=== PATIENT | male | born 1975 | race Caucasian/White ===

== ENCOUNTER 2018-10-14 12:11 | Emergency (ER) | payer OTHER ==
[~2018-10-14] VITALS: Ht 175.3 cm; Wt 98.4 kg
[~2018-10-14 12:11] MED LIST: FLUO20CA90
[2018-10-14 12:57] VITALS: BP 124/82
[2018-10-14] MEDS ORDERED: methylPREDNISolone SOD SUCC 125 MG/2 ML VL IM ONE (13:15)
[2018-10-14] MEDS ORDERED: KETOROLAC TROMETH 60MG/2ML VIAL IM ONE (13:15)
[2018-10-14] MEDS ORDERED: diphenhdrAMINE HCL 25 MG CAP PO ONE (13:15)
== END 2018-10-14 13:58 | disposition home or self-care (01) ==
LOC: ER 12:15
DX: H05.221 Edema of right orbit (principal); Z79.899 Other long term (current) drug therapy
CPT/HCPCS: 72100; 96372; 99283; J1885; J2930

== ENCOUNTER 2019-06-03 09:49 | Emergency (ER) | payer OTHER ==
[~2019-06-03] VITALS: Ht 175.3 cm; Wt 99.8 kg
[2019-06-03] MEDS ORDERED: ALBUTEROL SULF 2.5 MG/0.5ML(0.5%) NEB SOLN NEB ONE (13:15)
[2019-06-03] MEDS ORDERED: IPRATROPIUM BROM 0.5 MG/2.5ML INH SOL NEB ONE (13:15)
[2019-06-03 13:48] VITALS: BP 120/78
== END 2019-06-03 13:52 | disposition home or self-care (01) ==
LOC: ER 09:49
DX: J06.9 Acute upper respiratory infection, unspecified (principal)
CPT/HCPCS: 71046; 94640; 99283; J7611; J7644

== ENCOUNTER 2025-01-18 10:31 | Emergency (ER) | payer OTHER ==
[~2025-01-18] VITALS: Ht 175.3 cm; Wt 100.1 kg
[~2025-01-18 10:31] MED LIST changes: +FLUO-470; -FLUO20CA90
[2025-01-18 10:32] VITALS: TEMP 98
[2025-01-18 10:40] VITALS: BP 161/92; PULSE 78; RESP 18; O2SAT 95
--- NOTE | 2025-01-18 10:43 | ED.PDOC ---
Musculoskeletal HPI Comments A 49 YEAR OLD MALE PRESENTS TO THE ED WITH COMPLAINT OF RIGHT LOWER LEG PAIN. 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 PATIENT REPORTS HE IS NOW EXPERIENCING RIGHT LOWER LEG PAIN AND THINKS HE MAY HAVE PULLED A MUSCLE IN HIS RIGHT CALF, BUT WOULD LIKE TO HAVE IT EVALUATED REGARDLESS. PATIENT DENIES FEVER, CHILLS, SHORTNESS OF BREATH, CHEST PAIN, ABDOMINAL PAIN, NAUSEA, VOMITING, HEADACHE, OR OTHER COMPLAINTS. NO OTHER SYMPTOMS OR MODIFYING FACTORS AT THIS TIME. PATIENT IS ALERT, ORIENTED X 4, AND HAS STEADY GAIT. Chief Complaint: Lower Extremity Time Seen by MD: 10:36 Primary Care Provider: LEE Reviewed Notes: Nurses Notes, Medications, Allergies Allergies: Coded Allergies: NO KNOWN ALLERGIES (Unverified , 01/04/16) Home Meds Active Scripts Methocarbamol (Methocarbamol) 750 Mg Tab, 750 MG PO BID, #20 TAB Prov:SANJANA WILLS 01/18/25 Ibuprofen (Ibuprofen) 800 Mg Tab, 1 TAB PO TID, #30 TAB Prov:SANJANA WILLS 01/18/25 Reported Medications Fluoxetine HCl (Fluoxetine HCl) 20 Mg Cap 12/16/16 Information Source: Patient Mode of Arrival: Ambulatory Location: Right Extremity Location: Calf Timing: Hours Prehospital treatment: None Severity: Moderate Able to Move Extremity: Yes Bear Weight: Fully Pain: Moderate Mechanism: Twisting Circumstances: Accident Onset of Symptoms: After Exercise Symptoms: Pain DVT Risk Factors: NONE Last Tetanus: UTD, Unknown Associated signs and symptoms: Leg pain Past Medical History PAST MEDICAL HISTORY: Denies Surgical History: Denies all surgeries Family History Family History: Reviewed,noncontributory to illness Social History Smoker: Non-Smoker Alcohol: Occasionally Drugs: Denies Drug Use Lives In: Home Constitutional: denies: chills, diaphoresis, fatigue, fever, malaise, sweats, weakness, others EENTM: denies: blurred vision, double vision, ear bleeding, ear discharge, ear drainage, ear pain, ear ringing, eye pain, eye redness, hearing loss, mouth pain, mouth swelling, nasal discharge, nose bleeding, nose congestion, nose pain, photophobia, tearing, throat pain, throat swelling, voice changes, others Respiratory: denies: cough, hemoptysis, orthopnea, SOB at rest, shortness of breath, SOB with excertion, stridor, wheezing, others Cardiovascular: denies: chest pain, dizzy spells, diaphoresis, Dyspnea on exertion, edema, irregular heart beat, left arm pain, lightheadedness, palpitations, PND, syncope, others Gastrointestinal: denies: abdomen distended, abdominal pain, blood streaked bowels, constipated, diarrhea, dysphagia, difficulty swallowing, hematemesis, melena, nausea, poor appetite, poor fluid intake, rectal bleeding, rectal pain, vomiting, others Genitourinary: denies: burning, dysuria, flank pain, frequency, hematuria, in continence, penile discharge, penile sore, pain, testicle pain, testicle swelling, urgency, others Neurological: denies: dizziness, fainting, headache, left sided numbness, left sided weakness, numbness, paresthesia, pre-existing deficit, right sided numbness, right sided weakness, seizure, speech problems, tingling, tremors, weakness, others Musculoskeletal: reports: muscle pain, others (RIGHT LOWER LEG/CALF PAIN); denies: back pain, gout, joint pain, joint swelling, muscle stiffness, neck pain Integumetry: denies: bruises, change in color, change in hair/nails, dryness, laceration, lesions, lumps, rash, wounds, others Allergic/Immunocompromised: denies: Difficulty Healing, Frequent Infections, Hives, Itching, others Hematologic/Lymphatic: denies: anemia, blood clots, easy bleeding, easy bruising, swollen glands, others Endocrine: denies: excessive hunger, excessive sweating, excessive thirst, excessive urination, flushing, intolerance to cold, intolerance to heat, unexplained weight gain, unexplained weight loss, others Psychiatric: denies: anxiety, bipolar disorder, depression, hopeless, panic disorder, schizophrenia, sleepless, suicidal, others All Other Systems: Reviewed and Negative Physical Exam General Appearance: No Apparent Distress, Normal HEENT: Normal ENT Inspection, PERRL/EOMI, Pharynx Normal, TMs Normal Neck: Full Range of Motion, Non-Tender, Normal, Normal Inspection Respiratory: Chest Non-Tender, Lungs Clear, No Accessory Muscle Use, No Respiratory Distress, Normal Breath Sounds Cardiovascular: No Edema, No JVD, No Murmur, No Gallop, Normal Peripheral Pulses, Regular Rate/Rhythm Breast Exam: Deferred Gastrointestinal: No Organomegaly, Non Tender, No Pulsatile Mass, Normal Bowel Sounds, Soft Genitalia: Deferred Pelvic: Deferred Rectal: Deferred Extremities: Decreased range of motion (SLIGHTLY. ), No calf tenderness, Normal capillary refill, Normal inspection, No pedal edema, Tender (AND MUSCLE SPASM ON RIGHT LOWER LEG, NO REDNESS, SWELLING AND DVT SIGNS. 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 Was a procedure done?: No Differential Diagnosis EXT Differential Diagnosis: Deep Vein Thrombosis, Sprain, Strain Other Differential Diagnosis SUPERFICIAL THROMBOSIS X-Ray, Labs, Meds, VS Vital Signs Date Time Temp Pulse Resp B/P (MAP) Pulse Ox O2 Delivery O2 Flow Rate FiO2 01/18/25 10:40 78 18 161/92 (115) 95 01/18/25 10:40 78 18 95 Room Air 01/18/25 10:32 98.0 78 18 161/92 95 98.0 Current Medications Medications (Trade) Dose Ordered Sig/Hilario Route Start Time Stop Time Status Last Admin Ketorolac Tromethamine (Toradol Injection) 60 mg ONCE ONCE IM 01/18/25 11:45 01/18/25 11:46 DC 01/18/25 11:45 Clinical History: STEPPED DOWN THE LADDER AND RIGHT CALF STARTED PAIN Ultrasonic imaging with Duplex Doppler Color Flow and Spectral Analysis was performed on the common femoral, femoral vein, great saphenous vein, popliteal vein, posterior tibial and peroneal veins in the right extremity using imaging and pulse Doppler probes on a Duplex ultrasound machine. The venous response to augmentation and compression was also evaluated. The study was done at the specific request of the treating physician to evaluate blood flow and to evaluate for the presence of thrombosis in the above mentioned veins. WID: FINDINGS: On the right, all of above mentioned veins appear patent. Flow in the common femoral vein is phasic. All veins collapse with probe compression at all levels. There is normal augmentation with distal compression bilaterally. IMPRESSION: No evidence of deep vein thrombus ATED BY: CASIE CATHERINE MD DICTATED DATE/TIME: 01/18/25 1148 SIGNED BY: CASIE CATHERINE MD SIGNED DATE/TIME: 01/18/25 1148 CC: X-Ray, Labs, Meds, VS Comment EXTERNAL MEDICAL RECORDS REVIEWED: [NONE] INDEPENDENT HISTORIANS: [NONE] SOCIAL DETERMINANTS OF HEALTH: [NONE] LABS ORDERED: NONE REVIEWED AND INTERPRETED RESULTS: NONE IMAGING ORDERED: CV VENOUS DOPPLER LOW EXT RT: [INTERPRETED BY U.S. TECH. NO DVT VISUALIZED AT THIS TIME. PENDING RADIOLOGY REVIEW.] TREATMENTS ORDERED: TORADOL 60 MG IM, CRUTCHES GIVEN PROCEDURES PERFORMED: NONE CRITICAL CARE TIME: NONE I HAVE DISCUSSED THE PATIENT WITH THE ATTENDING PHYSICIAN DR. EVANS AND HE AGREES WITH THE PATIENT'S PLAN OF CARE AND DISPOSITION. BASED ON HISTORY OF PRESENT ILLNESS, AND PHYSICAL EXAM, PATIENT WILL BE DISCHARGED HOME. DISCUSSED PLAN FOR DISCHARGE HOME WITH RX [IBUPROFEN 800 MG AND ROBAXIN]. MEDICATION WARNINGS GIVEN. SHARED DECISION MAKING: DISCUSSED WITH PATIENT THAT THEIR WORKUP WAS NORMAL. PATIENT INSTRUCTED TO FOLLOW UP WITH PRIMARY CARE PROVIDER IN 1-2 DAYS FOR RE- EVALUATION OF SYMPTOMS. PATIENT VERBALIZES UNDERSTANDING TO RETURN TO ED FOR NEW OR WORSENING SYMPTOMS OR IF FOLLOW UP WITH PCP CANNOT BE OBTAINED. PATIENT FEELS COMFORTABLE GOING HOME AT THIS TIME. ALL QUESTIONS ADDRESSED AT TIME OF DISCHARGE. Images Reviewed?: Images reviewed and evaluated by me Time of 1ST Reevaluation: 12:00 Reevaluation 1ST: Improved Patient Education/Counseling: Diagnosis, Treatment, Need For Follow Up Family Education/Counseling: Diagnosis, Treatment, Need For Follow Up Medical Screening: No EMC Exist At This Time Departure 1 Departure Time of Disposition: 12:00 Impression: Primary Impression: Muscle strain of right lower leg Qualified Codes: S86.911A - Strain of unspecified muscle(s) and tendon(s) at lower leg level, right leg, initial encounter Disposition: HOME / SELF CARE / HOMELESS Condition: Stable Additional Instructions: FOLLOW-UP WITH PCP IN 1 TO 2 DAYS. TAKE MEDICATIONS PRESCRIBED. RETURN TO ED FOR ANY NEW OR WORSENING SYMPTOMS. e-Prescriptions Methocarbamol (Methocarbamol) 750 Mg Tab 750 MG PO BID, #20 TAB Prov: SANJANA WILLS 01/18/25 Ibuprofen (Ibuprofen) 800 Mg Tab 1 TAB PO TID, #30 TAB Prov: SANJANA WILLS 01/18/25 Discharged With: Self Critical Care Note Critical Care Time?: No Stability Stability form required: No I personally scribed for SANJANA WILLS ([email or web address]) on 01/18/25 at 10:43. Electronically submitted by Nick Torres ([email or web address]). I personally scribed for SANJANA WILLS ([email or web address]) on 01/18/25 at 11:41. Electronically submitted by Nick Torres ([email or web address]). I personally scribed for DONG EVANS MD ([email or web address]) on 01/18/25 at 11:51. Electronically submitted by Nick Torres ([email or web address]). SANJANA WILLS Jan 18, 2025 10:43 DONG EVANS MD Jan 18, 2025 11:51
[2025-01-18] MEDS ORDERED: METH-1182 PO (11:43)
[2025-01-18] MEDS ORDERED: IBUP-1456 PO (11:43)
[2025-01-18] MEDS: KETOROLAC TROMETH 60MG/2ML VIAL IM ONE (11:45)
--- NOTE | 2025-01-18 11:49 | DVH ---
Clinical History: STEPPED DOWN THE LADDER AND RIGHT CALF STARTED PAIN Ultrasonic imaging with Duplex Doppler Color Flow and Spectral Analysis was performed on the common f emoral, femoral vein, great saphenous vein, popliteal vein, posterior tibial and peroneal veins in th e right extremity using imaging and pulse Doppler probes on a Duplex ultrasound machine. The venous response to augmentation and compression was also evaluated. The study was done at the specific requ est of the treating physician to evaluate blood flow and to evaluate for the presence of thrombosis i n the above mentioned veins. WID: FINDINGS: On the right, all of above mentioned veins appear patent. Flow in the common femoral vein is phasic. All veins collapse with probe compression at all levels. There is normal augmentation with distal compression bilaterally. IMPRESSION: No evidence of deep vein thrombus
== END 2025-01-18 11:51 | disposition home or self-care (01) ==
LOC: ER 10:33
DX: S86.911A Strain of unspecified muscle(s) and tendon(s) at lower leg level, right leg, initial encounter (principal); F10.90 Alcohol use, unspecified, uncomplicated; Z79.1 Long term (current) use of non-steroidal anti-inflammatories (NSAID); Z79.899 Other long term (current) drug therapy; W11.XXXA Fall on and from ladder, initial encounter; Y93.89 Activity, other specified; Y92.89 Other specified places as the place of occurrence of the external cause; Y99.8 Other external cause status; Y90.9 Presence of alcohol in blood, level not specified
CPT/HCPCS: 93971; 96372; 99285; J1885